=== PATIENT | female | born 1960 | race Caucasian/White ===

== ENCOUNTER 2019-11-02 10:55 | Emergency (ER) | payer SELFPAY ==
[2019-11-02 11:27] LABS: Arterial Blood Carboxyhemoglob 1.1 % (0-1.5); Blood Gas Oxyhemoglobin 96.3 % (94-97); Blood O2 Saturation 98.3 % (92-98.5)
[2019-11-02] MEDS ORDERED: NA CHLORIDE 0.9% 1,000 ML ONE ×2 (11:34→15:42)
[2019-11-02 11:40] LABS: Absolute Lymphocytes (CBC) 1.4 K/uL (0.7-4.9); Basophils % 0.5 % (0-1.3); Hematocrit 38.2 % (36.0-45.0); Lymphocytes % 32.4 % (15.3-44.8); MPV 8.4 fL (7.6-11.3)
[2019-11-02 11:55] LABS: Protime INR 0.91
--- NOTE | 2019-11-02 11:58 | RAD REPORT ---
EXAM DESCRIPTION: CT - Head Brain Wo Cont - 11/02/2019 11:48 am CLINICAL HISTORY: SYNCOPE COMPARISON: HEAD BRAIN W O CONTRAST dated 05/27/2013 TECHNIQUE: Axial 5 mm thick images of the head were obtained without IV contrast. All CT scans are performed using dose optimization technique as appropriate and may include automated exposure control or mA/KV adjustment according to patient size. FINDINGS: No intracranial hemorrhage, mass, edema or shift of mid-line structures. No acute infarcti on changes seen. No abnormal extra-axial fluid collections. Ventricles are normal. Mastoid air cells and visualized portions of the paranasal sinuses are clear. No acute bony findings. IMPRESSION: Negative non-contrast CT head examination.
[2019-11-02 12:10] LABS: ALT/SGPT 15 U/L (12-78); AST/SGOT 21 U/L (15-37); Albumin 3.9 g/dL (3.4-5.0); Alkaline Phosphatase 74 U/L (45-117); BUN Blood Urea Nitrogen 13 mg/dL (7-18); Bicarbonate 24 mmol/L (21-32); Bilirubin Direct 0.2 mg/dL (0-0.2); Bilirubin Total 0.5 mg/dL (0.2-1.0); Glucose Level 107 mg/dL (74-106); Potassium 3.8 mmol/L (3.5-5.1); Protein, Total 7.2 g/dL (6.4-8.2); Sodium Level 140 mmol/L (136-145); Troponin (Emerg Dept Use Only) < 0.02 ng/mL (0.0-0.045)
[2019-11-02 12:50] LABS: Barbiturates NEGATIVE (NEGATIVE); Benzodiazepines NEGATIVE (NEGATIVE); Cocaine NEGATIVE (NEGATIVE); METHAMPHETAM NEGATIVE (NEGATIVE); Methadone NEGATIVE (NEGATIVE); Opiates NEGATIVE (NEGATIVE); Phencyclidine NEGATIVE (NEGATIVE); THC Cannibis NEGATIVE (NEGATIVE)
[2019-11-02 13:12] LABS: Urine Blood 1+ (NEG); Urine Glucose NEGATIVE (NEG); Urine Protein NEGATIVE (NEG); Urine Specific Gravity 1.015 (1.005-1.030); Urine pH 6.5 (5.0-7.0)
[2019-11-02] MEDS ORDERED: KETOROLAC 30 MG/ML INJ ONE (14:25)
[2019-11-02 17:39] VITALS: TEMP 97.8; O2SAT 99
[2019-11-02 17:40] VITALS: BP 168/78
--- NOTE | 2019-11-02 21:31 | EDPHYS ---
Physician Documentation [facility] Name: Jen James Age: 59 yrs Sex: Female : 1960 Arrival Date: 11/02/2019 Time: 11:04 Bed 23 Private MD: ED Physician Lavelle Vaca HPI: 11/01 14:13 This 59 yrs old Female presents to ER via EMS with complaints of General rn Weakness. 14:13 The patient presents with confusion, syncope. Onset: The symptoms/episode rn began/occurred this morning. Current symptoms: In the emergency department the patient's symptoms have improved. The patient has not experienced similar symptoms in the past. Reports since this AM smelling foul gases from bathrooms in house, has opened doors and windows, went outside, but began to experience generalized weakness, fatigue, nausea, and slight headache, went to bed fine, no focal neuro complaints, EMS reports normal neuro exam and ambulatory at house. Now patient reports too weak to stand. . Historical: - Allergies: 11:41 No Known Allergies; - Home Meds: 11:41 None [Active]; ah - PMHx: 11:41 None; - PSHx: 11:41 Hysterectomy; - Immunization history:: Adult Immunizations unknown. - Social history:: Smoking status: Patient reports the use of cigarette tobacco products, denies chronic smoking, but will smoke occasionally, Patient uses alcohol, occasionally. Patient/guardian denies using street drugs. - Family history:: not pertinent. - Hospitalizations: : No recent hospitalization is reported. ROS: 14:13 Constitutional: Negative for fever, chills, and weight loss, Eyes: Negative for injury, rn pain, redness, and discharge, Neck: Negative for injury, pain, and swelling, Cardiovascular: Negative for chest pain, palpitations, and edema, Respiratory: Negative for shortness of breath, cough, wheezing, and pleuritic chest pain, Abdomen/GI: Negative for abdominal pain, vomiting, diarrhea, and constipation, MS/Extremity: Negative for injury and deformity, Skin: Negative for injury, rash, and discoloration, Neuro: Negative for numbness, tingling, and seizure. Exam: 14:13 Constitutional: This is a well developed, well nourished patient who is awake, rn somnolent Head/Face: Normocephalic, atraumatic. Neck: Trachea midline, no thyromegaly or masses palpated, and no cervical lymphadenopathy. Supple, full range of motion without nuchal rigidity, or vertebral point tenderness. No Meningismus. Cardiovascular: Regular rate and rhythm . No pulse deficits. Respiratory: No increased work of breathing, no retractions or nasal flaring. Abdomen/GI: soft, non-tender Skin: Warm, dry MS/ Extremity: Pulses equal, no cyanosis. Neurovascular intact. Full, normal range of motion. Equal circumference. Neuro: Awake, GCS 15, oriented to person, place, time, and situation. Cranial nerves II-XII grossly intact. Motor strength 4/5 in all extremities. Sensory grossly intact. Vital Signs: 11:05 BP 188 / 88; Pulse 77; Resp 14; Pulse Ox 97% ; Height 5 ft. 1 in. (154.94 cm); Pain ah 0/10; 12:26 BP 147 / 75; Pulse 59; Resp 16; Pulse Ox 97% on R/A; mh5 13:23 BP 162 / 69; Pulse 51; Resp 16; Pulse Ox 99% on R/A; mh5 14:00 BP 145 / 72; Pulse 63; Resp 17; Pulse Ox 100% on R/A; vc 15:00 BP 182 / 82; Pulse 70; Resp 16; Pulse Ox 98% ; ah 16:00 BP 168 / 76; Pulse 52; Resp 16; Temp 97.8; Pulse Ox 99% ; ah 17:00 BP 168 / 78; Pulse 65; Resp 16; Pulse Ox 99% ; ah MDM: 11:05 Patient medically screened. rn 14:59 Differential Diagnosis: CVA, electrolyte abnormality, volume depletion, exposure to rn bung sewer gases, exposure to methane, exposure to hydrogen sulfide gas, anxiety, stress reaction. Data reviewed: vital signs, nurses notes, lab test result(s), EKG, radiologic studies, CT scan, and as a result, I will discharge patient. Counseling: I had a detailed discussion with the patient and/or guardian regarding: the historical points, exam findings, and any diagnostic results supporting the discharge/admit diagnosis, lab results, radiology results, the need for outpatient follow up, to return to the emergency department if symptoms worsen or persist or if there are any questions or concerns that arise at home. Response to treatment: the patient's symptoms have markedly improved after treatment, and as a result, I will discharge patient. Special discussion: I discussed with the patient/guardian in detail that at this point there is no indication for admission to the hospital. It is understood, however, that if the symptoms persist or worsen the patient needs to return immediately for re-evaluation. ED course: Pt ambulatory, feels much better, vitals stable, neg ct head and blood tests, ABG showed hyperventilation. Will dc home. . 11/01 11:15 Order name: Acetaminophen; Complete Time: 13:13 rn 11/01 11:15 Order name: Basic Metabolic Panel; Complete Time: 13:13 rn 11/01 11:15 Order name: CBC with Diff; Complete Time: 12: rn 11/01 11:15 Order name: ETOH Level; Complete Time: 12: rn 11/01 11:15 Order name: Hepatic Function; Complete Time: 13:13 rn 11/01 11:15 Order name: PT-INR; Complete Time: 12: rn 11/01 11:15 Order name: Ptt, Activated; Complete Time: 12: rn 11/01 11:15 Order name: Salicylate; Complete Time: 13:13 rn 11/01 11:15 Order name: Urine Drug Screen; Complete Time: 13:13 rn 11/01 11:15 Order name: ABG; Complete Time: 12: rn 11/01 11:15 Order name: CT Head Brain wo Cont; Complete Time: 12: rn 11/01 11:15 Order name: Troponin (emerg Dept Use Only); Complete Time: 13:13 rn 11/01 11:25 Order name: Glucose, Ancillary Testing; Complete Time: 12: EDMT 11/01 12:31 Order name: Urine Dipstick--Ancillary (enter results); Complete Time: 13:13 al 11/01 11:15 Order name: IV Start; Complete Time: 11:37 rn 11/01 11:15 Order name: EKG; Complete Time: 11:16 rn 11/01 11:15 Order name: EKG - Nurse/Tech; Complete Time: 11:22 rn 11/01 11:15 Order name: Labs collected and sent; Complete Time: 11:37 rn 11/01 11:15 Order name: Urine Dipstick-Ancillary (obtain specimen); Complete Time: 12:34 rn 11/01 11:16 Order name: Glucose Level; Complete Time: 11:22 rn Administered Medications: 11:45 Drug: NS 0.9% 1000 ml Route: IV; Rate: 1 bolus; Site: left antecubital; 16:42 Follow up: Response: No adverse reaction; IV Status: Completed infusion 14:21 Drug: TORadol - Ketorolac 15 mg Route: IVP; Site: left antecubital; 15:36 Follow up: Response: No adverse reaction 16:42 Follow up: Response: No adverse reaction; Pain is decreased 15:35 Drug: NS 0.9% 1000 ml Route: IV; Rate: 1000 ml; Site: left antecubital; 16:41 Follow up: Response: No adverse reaction; IV Status: Completed infusion Disposition: 11/02/19 15:05 Discharged to Home. Impression: Syncope and collapse, Toxic effect of other gases, fumes and vapors. - Condition is Stable. - Discharge Instructions: Syncope. - Medication Reconciliation Form, Thank You Letter, Antibiotic Education, Prescription Opioid Use form. - Follow up: Private Physician; When: As needed; Reason: Recheck today's complaints, Re-evaluation by your physician. - Problem is new. - Symptoms have improved. Signatures: Dispatcher [employer] EDMS Lavelle Vaca MD MD rn Harris, Amy, RN RN Corrections: (The following items were deleted from the chart) 17:27 15:05 11/02/2019 15:05 Discharged to Home. Impression: Syncope and collapse; Toxic ah effect of other gases, fumes and vapors. Condition is Stable. Forms are Medication Reconciliation Form, Thank You Letter, Antibiotic Education, Prescription Opioid Use. Follow up: Private Physician; When: As needed; Reason: Recheck today's complaints, Re-evaluation by your physician. Problem is new. Symptoms have improved. rn
--- NOTE | 2019-11-02 21:31 | ER ---
Nurse's Notes [facility] [place] [place] [facility] Name[facility] Age: 59 yrs Sex: Female : 1960 Arrival Date: 11/02/2019 Time: 11:04 Bed 23 Private MD: Diagnosis: Syncope and collapse;Toxic effect of other gases, fumes and vapors Presentation: 11/01 11:05 Chief complaint: EMS states: very strong smell of hand sewer/chemical in home. Pt possibly ah passed out, woke up and went out side. Pt c/o nauseated and weakness. Vitals per EMS 163/71, 83, 97%, 108 BGL. Coronavirus screen: Patient denies a cough. Patient denies shortness of breath or difficulty breathing. Patient denies measured and/or subjective temperature greater than 100.4F prior to today's visit. Patient denies travel on a cruise ship or to a country the [facility] currently lists as an affected area. Patient denies contact with known and/or suspected case of COVID-19. Proceed with normal triage. Ebola Screen: No symptoms or risks identified at this time. Initial Sepsis Screen: Does the patient meet any 2 criteria? No. Patient's initial sepsis screen is negative. Does the patient have a suspected source of infection? No. Patient's initial sepsis screen is negative. Risk Assessment: Do you want to hurt yourself or someone else? Patient reports no desire to harm self or others. Onset of symptoms was November 02, 2019. Care prior to arrival: IV initiated. 22 GA, in the right antecubital area, Glucose check: 108. 11:05 Method Of Arrival: EMS: [facility] 11:05 Acuity: [place] 3 Historical: - Allergies: 11:41 No Known Allergies; - Home Meds: 11:41 None [Active]; - PMHx: 11:41 None; - PSHx: 11:41 Hysterectomy; - Immunization history:: Adult Immunizations unknown. - Social history:: Smoking status: Patient reports the use of cigarette tobacco products, denies chronic smoking, but will smoke occasionally, Patient uses alcohol, occasionally. Patient/guardian denies using street drugs. - Family history:: not pertinent. - Hospitalizations: : No recent hospitalization is reported. Screenin:44 Abuse screen: Denies threats or abuse. Nutritional screening: No deficits noted. Tuberculosis screening: No symptoms or risk factors identified. Fall Risk None identified. Assessment: 11:42 General: Appears in no apparent distress. Behavior is calm, drowsy. Pain: Denies pain. Neuro: Level of Consciousness is lethargic, Oriented to person, place. Cardiovascular: Heart tones S1 S2 present Capillary refill < 3 seconds Patient's skin is warm and dry. Pulses are palpable in right radial artery and left radial artery Rhythm is sinus rhythm. Respiratory: Airway is patent Respiratory effort is even, unlabored, Respiratory pattern is regular, symmetrical, Breath sounds are clear bilaterally. Denies shortness of breath. GI: Reports nausea. Derm: Skin is intact, is healthy with good turgor, Skin is dry. Musculoskeletal: Circulation, motion, and sensation intact. Capillary refill < 3 seconds, Reports weakness in bilateral arms. 11:44 Reassessment: Pt to radiology for CT via stretcher. 12:30 Reassessment: Pt assisted to restroom via WC. Legs very weak and wobbly. Urine specimen collected and assisted back to bed. No other needs voiced. 14:00 Reassessment: Pt assisted to bathroom via staff x1. Pt able to walk, states that she is ah feeling better but has a bad headache. MD ordered meds. Toradol given IVP. 15:15 Reassessment: Pt states that she is feeling week again. MD notified. NS bolus ordered ah and started. No other needs voiced. 16:30 Reassessment: Assisted pt to [facility] in bathroom. Pt able to walk with standby assist. ah Tolerated well. 17:15 Reassessment: Discharge instructions given to Pt. Pt voiced understanding. Vital Signs: 11:05 BP 188 / 88; Pulse 77; Resp 14; Pulse Ox 97% ; Height 5 ft. 1 in. (154.94 cm); Pain ah 0/10; 12:26 BP 147 / 75; Pulse 59; Resp 16; Pulse Ox 97% on R/A; mh5 13:23 BP 162 / 69; Pulse 51; Resp 16; Pulse Ox 99% on R/A; mh5 14:00 BP 145 / 72; Pulse 63; Resp 17; Pulse Ox 100% on R/A; vc 15:00 BP 182 / 82; Pulse 70; Resp 16; Pulse Ox 98% ; 16:00 BP 168 / 76; Pulse 52; Resp 16; Temp 97.8; Pulse Ox 99% ; 17:00 BP 168 / 78; Pulse 65; Resp 16; Pulse Ox 99% ; ED Course: 11:04 Patient arrived in ED. 11:05 Lavelle Vaca MD is Attending Physician. rn 11:08 Janeth Newell, RN is Primary Nurse. 11:41 Triage completed. 11:44 Patient has correct armband on for positive identification. Placed in gown. Bed in low ah position. Call light in reach. Side rails up X2. secured entrance monitor on. Pulse ox on. NIBP on. Warm blanket given. 11:47 CT Head Brain wo Cont In Process Unspecified. EDMS 12:00 Arm band placed on right wrist. 16:41 Maintain EMS IV. Dressing intact. Good blood return noted. Site clean \T\ dry. Gauge \T\ ah site: 22 R AC. Administered Medications: 11:45 Drug: NS 0.9% 1000 ml Route: IV; Rate: 1 bolus; Site: left antecubital; 16:42 Follow up: Response: No adverse reaction; IV Status: Completed infusion 14:21 Drug: TORadol - Ketorolac 15 mg Route: IVP; Site: left antecubital; 15:36 Follow up: Response: No adverse reaction 16:42 Follow up: Response: No adverse reaction; Pain is decreased 15:35 Drug: NS 0.9% 1000 ml Route: IV; Rate: 1000 ml; Site: left antecubital; 16:41 Follow up: Response: No adverse reaction; IV Status: Completed infusion Outcome: 15:05 Discharge ordered by . rn 17:27 Patient left the ED. Signatures: Dispatcher [employer] EDOK Lavelle Vaca MD MD rn Smirch, Shelby, RN RN Maryellen Parker [facility] Ann-Marie Shin RN RN vc Harris, Amy, RN RN Corrections: (The following items were deleted from the chart) 16:40 16:00 BP 168 / 76; Pulse 52bpm; Resp 16bpm; Pulse Ox 99%; [facility]
== END 2019-11-02 17:27 | disposition home or self-care (01) ==
LOC: ER 10:55
DX: R53.1 Weakness (principal); T59.91XA Toxic effect of unspecified gases, fumes and vapors, accidental (unintentional), initial encounter
CPT/HCPCS: 36415; 70450; 80048; 80076; 80307; 80320; 80329; 81003; 82805; 82947; 84484; 85025; 85610; 85730; 93005; 96361; 96374; 99284; J7030

== ENCOUNTER 2020-10-29 14:35 | Emergency (ER) | payer SELFPAY ==
--- NOTE | 2020-10-29 15:56 | RAD REPORT ---
EXAM DESCRIPTION: RAD - Femur Left - 10/29/2020 3:47 pm CLINICAL HISTORY: Left leg pain FINDINGS: No fracture is seen
--- NOTE | 2020-10-29 15:56 | RAD REPORT ---
EXAM DESCRIPTION: RAD - Shoulder Left 2 View - 10/29/2020 3:47 pm CLINICAL HISTORY: Left shoulder pain status post fall FINDINGS: No fracture or dislocation is seen. The bones appear osteoporotic
--- NOTE | 2020-10-29 15:57 | RAD REPORT ---
EXAM DESCRIPTION: RAD - Knee Left 3 View - 10/29/2020 3:46 pm CLINICAL HISTORY: Left knee pain status post injury FINDINGS: No fracture or dislocation is seen.
--- NOTE | 2020-10-29 17:15 | ER ---
Nurse's Notes [facility] Name: Jen James Age: 60 yrs Sex: Female : 1960 Arrival Date: 10/29/2020 Time: 14:43 Bed 18 Private MD: Diagnosis: Fall (on)(from) incline;Contusion of left shoulder;Contusion of left knee Presentation: 10/29 14:50 Chief complaint: Patient states: Slipped in puddle of water at [facility] and hit her left kg knee and left leg and left shoulder. Denies hitting her head or LOC. Coronavirus screen: Client denies travel out of the [place] in the last 14 days. At this time, unable to obtain information related to travel outside the [place] At this time, the client does not indicate any symptoms associated with coronavirus-19. Ebola Screen: Patient negative for fever greater than or equal to 101.5 degrees Fahrenheit, and additional compatible Ebola Virus Disease symptoms Patient denies exposure to infectious person. Patient denies travel to an Ebola-affected area in the 21 days before illness onset. Initial Sepsis Screen: Does the patient meet any 2 criteria? No. Patient's initial sepsis screen is negative. Does the patient have a suspected source of infection? No. Patient's initial sepsis screen is negative. Risk Assessment: Do you want to hurt yourself or someone else? Patient reports no desire to harm self or others. Onset of symptoms was October 29, 2020 at 14:30. 14:50 Method Of Arrival: Wheelchair kg 14:50 Acuity: HOSEA 4 kg Triage Assessment: 14:53 General: Appears uncomfortable, Behavior is cooperative, appropriate for age, anxious. kg Pain: Complains of pain in left leg Pain radiates to left arm, left shoulder Pain currently is 10 out of 10 on a pain scale. at worst was 10 out of 10 on a pain scale. level that patient reports is acceptable is 6 out of 10 on a pain scale. Quality of pain is described as burning, spasms, burning Pain began 1 hour ago. Historical: - Allergies: 14:53 No Known Allergies; kg - Home Meds: 14:53 None [Active]; kg - PMHx: 14:53 None; kg - PSHx: 14:53 hysterectomy; ovaries removed; kg - Immunization history:: Adult Immunizations not up to date, Client reports having NOT received the Covid vaccine. - Social history:: Smoking status: Patient reports the use of cigarette tobacco products, smokes one-half pack cigarettes per day, Patient uses alcohol, occasionally. Screenin:55 Abuse screen: Denies threats or abuse. Denies injuries from another. Nutritional kg screening: No deficits noted. Tuberculosis screening: No symptoms or risk factors identified. Fall Risk Fall in past 12 months (25 points). No secondary diagnosis (0 pts). No IV (0 pts). Ambulatory Aid- None/Bed Rest/Nurse Assist (0 pts). Gait- Impaired (20 pts.). Mental Status- Oriented to own ability (0 pts). Total Santana Fall Scale indicates No Risk (0-24 pts). Assessment: 16:48 General: Appears uncomfortable, Behavior is calm, cooperative. Pain: Complains of pain ap3 in left arm, l knee, right hip, left shoulder. Neuro: No deficits noted. Level of Consciousness is awake, alert, obeys commands, Oriented to person, place, time, situation, Appropriate for age. Cardiovascular: Denies chest pain, Capillary refill < 3 seconds Patient's skin is warm and dry. Respiratory: Airway is patent Respiratory effort is even, unlabored, Respiratory pattern is regular, symmetrical. GI: No signs and/or symptoms were reported involving the gastrointestinal system. : No signs and/or symptoms were reported regarding the genitourinary system. EENT: No signs and/or symptoms were reported regarding the EENT system. Derm: No signs and/or symptoms reported regarding the dermatologic system. Musculoskeletal: Reports pain in left arm and left leg, left shoulder, right hip since today after fall at [employer]. Vital Signs: 14:50 BP 179 / 93; Pulse 95; Resp 20; Temp 98.8; Pulse Ox 99% on R/A; Weight 54.43 kg (R); kg Height 5 ft. 1 in. (154.94 cm); Pain 10/10; 17:45 BP 149 / 75; Pulse 62; Resp 17; Pulse Ox 100% on R/A; ap3 14:50 Body Mass Index 22.67 (54.43 kg, 154.94 cm) kg ED Course: 14:43 Patient arrived in ED. ds1 14:53 Triage completed. kg 14:53 Arm band placed on right wrist. kg 14:55 Patient has correct armband on for positive identification. kg 15:46 XRAY Knee LEFT 3 view In Process Unspecified. EDMS 15:46 XRAY Femur LEFT In Process Unspecified. EDMS 15:47 XRAY Shoulder LEFT 2 view In Process Unspecified. EDMS 16:43 Leonardo Wu MD is Attending Physician. [facility] 16:46 Luciana Cannon, RN is Primary Nurse. ap3 17:13 Vasquez Arce MD is Referral Physician. [facility] 17:44 No provider procedures requiring assistance completed. Patient did not have IV access ap3 during this emergency room visit. Administered Medications: 18:04 Drug: Fulda (HYDROcodone-acetaminophen) 10 mg-325 mg 1 tabs Route: PO; ap3 18:29 Follow up: Response: No adverse reaction ap3 18:04 Drug: Ketorolac 60 mg Route: IM; Site: right deltoid; ap3 18:29 Follow up: Response: No adverse reaction ap3 Outcome: 17:14 Discharge ordered by . simran 18:06 Discharged to home ap3 18:06 Condition: good 18:06 Discharge instructions given to patient, friend, Instructed on discharge instructions, follow up and referral plans. medication usage, splint care Demonstrated understanding of instructions, follow-up care, medications, Prescriptions given X 2. 18:29 Patient left the ED. ap3 Signatures: Dispatcher [employer] EDDC Leonardo Wu MD MD cha Sanford, Demi ds1 Luciana Cannon, HENNY RN ap3 Roberta Godoy RN RN kg
--- NOTE | 2020-10-29 17:15 | EDPHYS ---
Physician Documentation [facility] Name: Jen James Age: 60 yrs Sex: Female : 1960 Arrival Date: 10/29/2020 Time: 14:43 Bed 18 Private MD: RADHA Physician Leonardo Wu HPI: 10/29 17:07 This 60 yrs old Female presents to ER via Wheelchair with complaints of Fall simran Injury. 17:07 Details of fall: The patient fell from an upright position, while walking. Onset: The simran symptoms/episode began/occurred just prior to arrival. Associated injuries: The patient sustained left arm and left leg, decreased range of motion. Severity of symptoms: At their worst the symptoms were moderate, in the emergency department the symptoms are unchanged. The patient has not experienced similar symptoms in the past. Historical: - Allergies: 14:53 No Known Allergies; kg - Home Meds: 14:53 None [Active]; kg - PMHx: 14:53 None; kg - PSHx: 14:53 hysterectomy; ovaries removed; kg - Immunization history:: Adult Immunizations not up to date, Client reports having NOT received the Covid vaccine. - Social history:: Smoking status: Patient reports the use of cigarette tobacco products, smokes one-half pack cigarettes per day, Patient uses alcohol, occasionally. ROS: 17:08 Constitutional: Negative for fever, chills, and weight loss, Eyes: Negative for injury, simran pain, redness, and discharge, ENT: Negative for injury, pain, and discharge, Neck: Negative for injury, pain, and swelling, Cardiovascular: Negative for chest pain, palpitations, and edema, Respiratory: Negative for shortness of breath, cough, wheezing, and pleuritic chest pain, Abdomen/GI: Negative for abdominal pain, nausea, vomiting, diarrhea, and constipation, Back: Negative for injury and pain, : Negative for injury, bleeding, discharge, and swelling, Skin: Negative for injury, rash, and discoloration, Neuro: Negative for headache, weakness, numbness, tingling, and seizure, Psych: Negative for depression, anxiety, suicide ideation, homicidal ideation, and hallucinations, Allergy/Immunology: Negative for hives, rash, and allergies, Endocrine: Negative for neck swelling, polydipsia, polyuria, polyphagia, and marked weight changes. 17:08 MS/extremity: Positive for decreased range of motion, pain, swelling, tenderness, of the left arm and left leg. Exam: 17:08 Constitutional: This is a well developed, well nourished patient who is awake, alert, simran and in no acute distress. Head/Face: Normocephalic, atraumatic. Eyes: Pupils equal round and reactive to light, extra-ocular motions intact. Lids and lashes normal. Conjunctiva and sclera are non-icteric and not injected. Cornea within normal limits. Periorbital areas with no swelling, redness, or edema. ENT: Nares patent. No nasal discharge, no septal abnormalities noted. Tympanic membranes are normal and external auditory canals are clear. Oropharynx with no redness, swelling, or masses, exudates, or evidence of obstruction, uvula midline. Mucous membranes moist. Neck: Trachea midline, no thyromegaly or masses palpated, and no cervical lymphadenopathy. Supple, full range of motion without nuchal rigidity, or vertebral point tenderness. No Meningismus. Chest/axilla: Normal chest wall appearance and motion. Nontender with no deformity. No lesions are appreciated. Cardiovascular: Regular rate and rhythm with a normal S1 and S2. No gallops, murmurs, or rubs. Normal PMI, no JVD. No pulse deficits. Respiratory: Lungs have equal breath sounds bilaterally, clear to auscultation and percussion. No rales, rhonchi or wheezes noted. No increased work of breathing, no retractions or nasal flaring. Abdomen/GI: Soft, non-tender, with normal bowel sounds. No distension or tympany. No guarding or rebound. No evidence of tenderness throughout. Back: No spinal tenderness. No costovertebral tenderness. Full range of motion. Female : Normal external genitalia. Skin: Warm, dry with normal turgor. Normal color with no rashes, no lesions, and no evidence of cellulitis. Neuro: Awake and alert, GCS 15, oriented to person, place, time, and situation. Cranial nerves II-XII grossly intact. Motor strength 5/5 in all extremities. Sensory grossly intact. Cerebellar exam normal. Normal gait. Psych: Awake, alert, with orientation to person, place and time. Behavior, mood, and affect are within normal limits. 17:08 Musculoskeletal/extremity: Extremities: noted in the left arm and left leg: decreased ROM, pain, ROM: limited active range of motion, limited passive range of motion, limited active range of motion due to pain, limited passive range of motion due to pain, Circulation is intact in all extremities. Sensation intact. Compartment Syndrome exam of affected extremity: is normal. DVT Exam: No signs of deep vein thrombosis. no swelling, negative Homans' sign noted on exam, no appreciated bluish discoloration, no erythema, no increased warmth, pain, tenderness. Vital Signs: 14:50 BP 179 / 93; Pulse 95; Resp 20; Temp 98.8; Pulse Ox 99% on R/A; Weight 54.43 kg (R); kg Height 5 ft. 1 in. (154.94 cm); Pain 10/10; 17:45 BP 149 / 75; Pulse 62; Resp 17; Pulse Ox 100% on R/A; ap3 14:50 Body Mass Index 22.67 (54.43 kg, 154.94 cm) kg MDM: 16:43 Patient medically screened. simran 17:10 Differential diagnosis: humeral head fracture, glenoid fracture, closed fracture. simran Differential diagnosis: contusion, fracture, multiple trauma, sprain, strain. Data reviewed: vital signs, nurses notes, radiologic studies, plain films. Data interpreted: environmental monitoring specialist: rate is 95 beats/min, rhythm is regular, Pulse oximetry: on room air is 99 %. Test interpretation: by ED physician or midlevel provider: plain radiologic studies. Counseling: I had a detailed discussion with the patient and/or guardian regarding: the historical points, exam findings, and any diagnostic results supporting the discharge/admit diagnosis, lab results, radiology results, the need for outpatient follow up, for definitive care, a family practitioner, a orthopedic surgeon. 10/29 14:57 Order name: XRAY Knee LEFT 3 view; Complete Time: 16:53 kg 10/29 14:57 Order name: XRAY Femur LEFT; Complete Time: 16:53 kg 10/29 14:57 Order name: XRAY Shoulder LEFT 2 view; Complete Time: 16:53 kg 10/29 17:06 Order name: Sling; Complete Time: 18:04 [facility] 10/29 17:06 Order name: Knee Immobilizer; Complete Time: 18:04 [facility] 10/29 17:06 Order name: Ice pack; Complete Time: 17:45 simran Administered Medications: 18:04 Drug: [place] (HYDROcodone-acetaminophen) 10 mg-325 mg 1 tabs Route: PO; ap3 18:29 Follow up: Response: No adverse reaction ap3 18:04 Drug: Ketorolac 60 mg Route: IM; Site: right deltoid; ap3 18:29 Follow up: Response: No adverse reaction ap3 Disposition Summary: 10/29/20 17:14 Discharge Ordered Location: Home [facility] Problem: new simran Symptoms: have improved simran Condition: Stable simran Diagnosis - Fall (on)(from) incline simran - Contusion of left shoulder simran - Contusion of left knee simran Followup: simran - With: Private Physician - When: 2 - 3 days - Reason: Recheck today's complaints, Continuance of care, Re-evaluation by your physician Followup: simran - With: Vasquez Arce MD - When: 2 - 3 days - Reason: Recheck today's complaints, Re-evaluation by your physician Discharge Instructions: - Discharge Summary Sheet [facility] - Fall Prevention in the Home, Adult [facility] - How to Use a Knee Immobilizer simran - Knee Sprain, Adult simran - Shoulder Sprain simran - Knee Sprain, Adult, [id number] [facility] Forms: - Medication Reconciliation Form [facility] - Thank You Letter [facility] - Antibiotic Education [facility] - Prescription Opioid Use [facility] Prescriptions: - Tramadol 50 mg Oral Tablet - take 1 tablet by ORAL route every 6 hours as needed; 26 tablet; Refills: 0, [facility] Product Selection Permitted - Motrin IB 200 mg Oral Tablet - take 2 tablet by ORAL route every 6 hours As needed as needed with food; 30 simran tablet; Refills: 0, Product Selection Permitted Signatures: Dispatcher [employer] Leonardo Obregon MD MD cha Prokisch, Amanda RN RN ap3 Roberta Godoy RN RN kg
[2020-10-29] MEDS ORDERED: KETOROLAC 30 MG/ML INJ ONE (18:14)
[2020-10-29] MEDS ORDERED: HYDROCODONE/APAP 10/325 TAB ONE (18:14)
[2020-10-29 18:36] VITALS: TEMP 98.8
[2020-10-29 18:37] VITALS: BP 149/75; O2SAT 100
== END 2020-10-29 18:29 | disposition home or self-care (01) ==
LOC: ER 14:35
DX: S40.012A Contusion of left shoulder, initial encounter (principal); S80.02XA Contusion of left knee, initial encounter; W10.2XXA Fall (on)(from) incline, initial encounter; Y93.01 Activity, walking, marching and hiking; F17.210 Nicotine dependence, cigarettes, uncomplicated
CPT/HCPCS: 96372; 99283